=== PATIENT | male | born 1960 | race African-American/Black ===

== ENCOUNTER 2020-09-23 18:08 | Emergency (ER) | payer MEDICAID ==
[~2020-09-23] VITALS: Ht 185.4 cm; Wt 79.0 kg
[2020-09-23] MEDS ORDERED: TRAZ-251 PO (18:18)
[2020-09-23] MEDS ORDERED: CARB200T PO (18:18)
[2020-09-23] MEDS ORDERED: KETOROLAC 30MG/ML VIAL IV STA (18:57)
[2020-09-23] MEDS ORDERED: ONDANSETRON HCL 4MG/2ML INJ IV STA (18:57)
[2020-09-23] MEDS ORDERED: SODIUM CHLORIDE 0.9% 1,000 ML IV ONE (19:00)
[2020-09-23 19:26] LABS: BASOPHILS % 0.2 % (0.0-2.0); EOSINOPHILS % 0.3 % (0.0-5.0); HEMATOCRIT. 40.8 % (42.0-52.0); HEMOGLOBIN. 13.3 g/dL (14.0-18.0); LYMPHOCYTES % 34.4 % (20.0-50.0); MEAN CORPUSCULAR HEMOGLOBIN 29.4 pg (28.0-32.0); MEAN CORPUSCULAR VOLUME 90.1 fL (80.0-94.0); MEAN PLATELET VOLUME 8.3 fl (7.4-10.4); MONOCYTES % 8.6 % (2.0-8.0); NEUTROPHILS % 56.5 % (40.0-76.0); PLATELET 224 x1000/uL (130-400); RED BLOOD CELL COUNT 4.53 mill/uL (4.7-6.1); RED CELL DISTRIBUTION WIDTH 13.8 % (11.6-14.6)
[2020-09-23 19:33] LABS: CHLORIDE 107 mEq/L (98-107)
[2020-09-23 19:57] LABS: CLARITY URINE CLEAR (CLEAR); COLOR URINE YELLOW (YELLOW); KETONES URINE NEGATIVE (NEGATIVE); LEUKOCYTE ESTERASE URINE NEGATIVE (NEGATIVE); NITRITE URINE NEGATIVE (NEGATIVE); OCCULT BLOOD URINE NEGATIVE (NEGATIVE); PH URINE 5.5 (4.5-8.0); PROTEIN URINE NEGATIVE (NEGATIVE); SPECIFIC GRAVITY URINE 1.009 (1.005-1.030); UROBILINOGEN URINE 0.2 E.U./dL (0.2-1.0)
[2020-09-23] MEDS ORDERED: BACL-141 MT (22:18)
[2020-09-23] MEDS ORDERED: IBUP-2029 MT (22:18)
[2020-09-23 22:30] VITALS: BP 125/75
== END 2020-09-23 22:46 | disposition home or self-care (01) ==
LOC: ER 18:08
DX: R10.12 Left upper quadrant pain (principal); G40.909 Epilepsy, unspecified, not intractable, without status epilepticus; Z86.73 Personal history of transient ischemic attack (TIA), and cerebral infarction without residual deficits; Z98.890 Other specified postprocedural states
CPT/HCPCS: 36415; 71045; 74176; 80053; 81003; 83690; 85025; 93005; 96361; 96374; 96375; 99285; J1885; J2405; J7030